=== PATIENT | male | born 1950 | race Caucasian/White ===

== ENCOUNTER 2019-03-15 10:01 | Emergency (ER) | payer MEDICARE, BC ==
--- NOTE | 2019-03-15 10:40 | EDM.PDOC ---
ED HPI GENERAL MEDICAL PROBLEM - General Chief Complaint: Lower Extremity Injury/Pain Stated Complaint: LEFT KNEE PAIN Time Seen by Provider: 03/15/19 10:25 Source of Information: Reports: Patient, RN History Limitations: Reports: No Limitations - History of Present Illness INITIAL COMMENTS - FREE TEXT/NARRATIVE: 69 yo male was working around his home recently and heard/felt a pop in the L knee. Since then the knee has swollen and is hard to bend or fully straighten. Is taking Aleve with only partial benefit. Onset: Sudden Duration: Day(s):, Getting Worse Location: Reports: Lower Extremity, Left Quality: Reports: Ache Severity: Moderate Improves with: Reports: Rest Worsens with: Reports: Movement Context: Reports: Trauma Associated Symptoms: Reports: No Other Symptoms Treatments MEDICAL RECEPTION SPECIALIST: Reports: NSAIDS left knee Pain Score (Numeric/FACES): 5 - Related Data Allergies Allergy/AdvReac Type Severity Reaction Status Date / Time ethinyl estradiol Allergy Other Verified 03/15/19 10:20 [From Seasonale ()] levonorgestrel Allergy Other Verified 03/15/19 10:20 [From ()] Home Meds: Home Meds NK [No Known Home Meds] 03/15/19 [History] Past Medical History - Past Health History Medical/Surgical History: Denies Medical/Surgical History Musculoskeletal History: Reports: Fracture - Past Surgical History GI Surgical History: Reports: Cholecystectomy Social & Family History - Tobacco Use Smoking Status *Q: Never Smoker - Caffeine Use Caffeine Use: Reports: Soda - Recreational Drug Use Recreational Drug Use: No Review of Systems - Review of Systems Review Of Systems: See Below Constitutional: Reports: No Symptoms Musculoskeletal: Reports: Joint Pain, Joint Swelling (L knee) Skin: Reports: No Symptoms Neurological: Reports: No Symptoms ED EXAM, GENERAL - Physical Exam Exam: See Below Exam Limited By: No Limitations General Appearance: Alert, WD/WN, No Apparent Distress Extremities: Pedal Edema (L knee grossly swollen), Limited Range of Motion (due to swelling), Other (medial jt line tenderness, no ligamentous laxity.). No: Normal Inspection, Normal Range of Motion, Non-Tender, No Pedal Edema Neurological: Alert, Oriented, CN II-XII Intact, Normal Cognition, No Motor/ Sensory Deficits Psychiatric: Normal Affect, Normal Mood Skin Exam: Warm, Dry, Intact, Normal Color, No Rash Course - Vital Signs Text/Narrative:: 6 inch AFSANEH applied Last Recorded V/S: Last Vital Signs Temp 34.9 C L 03/15/19 10:21 Pulse 79 03/15/19 10:21 Resp 15 03/15/19 10:21 BP 157/85 H 03/15/19 10:21 Pulse Ox 96 03/15/19 10:21 Departure - Departure Time of Disposition: 10:40 Disposition: Home, Self-Care 01 Condition: Fair Clinical Impression: Medial meniscus tear Qualifiers: Tear current or old: current Encounter type: initial encounter Meniscus tear of knee type: unspecified type Laterality: left Qualified Code(s): S83.242A - Other tear of medial meniscus, current injury, left knee, initial encounter - Discharge Information *PRESCRIPTION DRUG MONITORING PROGRAM REVIEWED*: No *COPY OF PRESCRIPTION DRUG MONITORING REPORT IN PATIENT DANILO: No Instructions: Meniscus Tear Referrals: PCP,None [Primary Care Provider] - Additional Instructions: Avoid any flexion/extension of that knee while weight bearing. Use AFSANEH wrap for some support. Take ibuprofen or Aleve as needed for pain relief. Add acetaminophen as needed for added relief. F/U with Orthopedics for definitive care.
== END 2019-03-15 10:53 | disposition home or self-care (01) ==
LOC: JP.ED 10:01
DX: S83.242A Other tear of medial meniscus, current injury, left knee, initial encounter (principal); Z90.49 Acquired absence of other specified parts of digestive tract; Z88.8 Allergy status to other drugs, medicaments and biological substances; X50.9XXA Other and unspecified overexertion or strenuous movements or postures, initial encounter
CPT/HCPCS: 99282; 99283

== ENCOUNTER 2019-04-05 05:51 | Day surgery (SDC) | payer MEDICARE, BC ==
[2019-04-05] MEDS ORDERED: ceFAZolin 1 GM in Premix Bag 1 BAG IV ONE (06:30)
[2019-04-05] MEDS ORDERED: Lactated Ringers 1,000 ML IV SCH (06:30)
[2019-04-05] MEDS ORDERED: Nozin Nasal Sanitizer NASBOTH ONE (06:30)
[2019-04-05] MEDS ORDERED: Bupivacaine 0.25% 10 ML SDV ONE ×2 (06:57→07:02)
[2019-04-05] MEDS ORDERED: fentaNYL 250 MCG/5 ML SDV ONE (07:15)
[2019-04-05] MEDS ORDERED: Ondansetron 4 MG/2 ML SDV ONE (07:15)
[2019-04-05] MEDS ORDERED: Succinylcholine 200 MG/10 ML MDV ONE (07:15)
[2019-04-05] MEDS ORDERED: Glycopyrrolate 0.2 MG/ML 5 ML MDV ONE (07:15)
[2019-04-05] MEDS ORDERED: Dexamethasone 4 MG/ML SDV ONE (07:15)
[2019-04-05] MEDS ORDERED: Propofol 200 MG/20 ML SDV ONE (07:15)
[2019-04-05] MEDS ORDERED: Rocuronium 50 MG/5 ML Vial ONE (07:15)
[2019-04-05] MEDS ORDERED: Neostigmine Methylsulfate 1 MG/ML 5 ML Syringe ONE (07:15)
[2019-04-05] MEDS ORDERED: Ketorolac 60 MG/2 ML SDV ONE (07:48)
[2019-04-05] MEDS ORDERED: Acetaminophen/HYDROcodone 325-5 MG Tab PO ONE (09:01)
--- NOTE | 2019-04-12 22:24 | OR ---
DATE OF PROCEDURE: 04/05/2019 PREOPERATIVE DIAGNOSES: 1. Medial meniscus tear, left knee. 2. Chondromalacia, patellofemoral joint. POSTOPERATIVE DIAGNOSES: 1. Medial meniscus tear, left knee, complex posterior horn. 2. Chondromalacia, patellofemoral joint, grade 4. PROCEDURE: Arthroscopy, left knee, with partial medial meniscectomy. ANESTHESIA: General. INDICATIONS: Mr. Rdz is a 69-year-old gentleman who sustained an injury to his left knee resulting in persistent medial knee pain. Examination and imaging are consistent with a tear of the posterior horn of the medial meniscus. He also demonstrates degenerative changes of patellofemoral joint, particularly loss of articular cartilage in the patella. Discussed treatment options. He has failed intraoperative injection. Since the pain is medial and corresponds with his examination and imaging of the meniscus tear, plan arthroscopic partial meniscectomy. He is aware that the degenerative changes of the patellofemoral joint cannot be adequately addressed arthroscopically and he may have persistent anterior knee pain. Risks, benefits, and potential complications of operative versus nonoperative treatment were discussed at some length. DESCRIPTION OF PROCEDURE: After adequate anesthesia was obtained, the patient was placed supine with a tourniquet about the left upper thigh. Left leg was prepped and draped in a sterile fashion. Leg was exsanguinated, and tourniquet inflated to 300 mmHg pressure. Standard inferior, medial, and lateral portals were established. The scope was then introduced and patellofemoral joint inspected. This revealed grade 4 changes of the patella with near-complete articular cartilage loss over the majority of the weightbearing portion of the patella with small lis of articular cartilage still present. Trochlear groove showed thinning but did not show full-thickness loss. Multiple small loose bodies were present within the joint consistent with degenerative fraying and flaking from the patella. Tumor was swept into the medial compartment which revealed a complex tear of the posterior horn consisting primarily of a radial full-thickness tear with significant fraying of the more medial portion of the flap. Mild degenerative changes of the medial femoral condyle were noted. Using combination of a punch basket and shaver, medial meniscus was debrided back to a stable margin. This consisted primarily of a superior femoral sided flap with a significant portion of the inferior aspect still intact. Edges of the tear were contoured and the remaining portion of the meniscus was stable. All loose fragments were removed. Intercondylar notch was inspected with intact ACL and PCL. Lateral compartment revealed intact meniscus and articular surfaces. Additional small flakes of articular cartilage were debrided from the suprapatellar pouch with shaver. The knee was then drained. Scope was withdrawn. Port sites were closed in a standard fashion, dressed with Steri-Strips, and Xeroform gauze, infiltrated with Marcaine, and a sterile dressing was applied. The patient tolerated the procedure well. There were no complications. Taken from the operating room in stable condition. Kalia Cho MD /[id number]
== END 2019-04-05 10:15 | disposition home or self-care (01) ==
LOC: JP.SDS 05:51
PROVIDERS: ATTEND Specialist
DX: S83.232A Complex tear of medial meniscus, current injury, left knee, initial encounter (principal); M22.42 Chondromalacia patellae, left knee; Z87.891 Personal history of nicotine dependence
CPT/HCPCS: 29881; A9270; J0330; J0690; J1100; J1885; J2405; J2704; J2710; J3010; J3490; J7120